=== PATIENT | female | born 2000 | race Caucasian/White ===

== ENCOUNTER 2021-01-02 09:03 | Emergency (ER) | payer BC, OTHER, SELFPAY ==
--- NOTE | 2021-01-02 09:12 | ED.FEMALEGU ---
HPI - Female Genitourinary General Chief complaint: Urogenital-Female Stated complaint: vaginal issues Time Seen by Provider: 01/02/21 09:06 Source: patient Mode of arrival: ambulatory Limitations: no limitations History of Present Illness HPI Narrative: Patient is a 20 year old female who presents reporting Diva cup is stuck. Patient reports inserting yesterday at approximately 2pm and has been unsuccessful at removing. Denies pelvic pain or other complaints. Patient denies medical significant medical history and denies all other complaints. MD elicited complaint: other (Foreign body (Diva cup)) Related Data Home Medications Medication Instructions Recorded Confirmed No Home Medications 01/02/21 01/02/21 Allergies Allergy/AdvReac Type Severity Reaction Status Date / Time No Known Allergies Allergy Verified 01/02/21 09:25 Review of Systems Review of Systems: Narrative: CONSTITUTIONAL: Denies fever, chills, or sweats. EYES: Denies visual changes, redness, or discharge. ENT: Denies rhinorrhea, congestion, sore throat, or otalgia. CARDIOVASCULAR: Denies chest pain, palpitations, or edema. RESPIRATORY: Denies cough or dyspnea. GASTROINTESTINAL: Denies abdominal pain, nausea, vomiting, or diarrhea. GENITOURINARY: Denies dysuria or hematuria. Reports unable to remove diva cup SKIN: Denies rash or itching. MUSCULOSKELETAL: Denies back pain, joint pain, or myalgia. NEUROLOGIC: Denies headache, numbness, dizziness, or weakness. PSYCHIATRIC: Denies anxiety or depression. [facility] Social History Social History (Updated 01/02/21 @ 09:14 by RAMIRO Smith) Smoking status: Never smoker Alcohol intake: never Substance use: never Comments Past Exam Narrative: Exam Narrative: GENERAL: Well-appearing, well-nourished, and in no acute distress. HEAD: Normocephalic, atraumatic. EYES: EOMI. No redness or drainage. Conjunctiva are normal. ENT: Mucous membranes pink and moist. CHEST: No respiratory distress. HEART: Regular rate and rhythm. GI: Soft, nontender without rebound, or guarding. No distention. : see procedure note EXTREMITIES: Normal range of motion. No edema. SKIN: Warm, dry, no rash. NEURO: No focal deficits. Alert and oriented x3. Gait steady. PSYCH: Normal affect. No signs of depression or anxiety. Tearful with pelvic exam. Course Vital Signs Vital signs: Vital Signs Temperature 36.8 C 01/02/21 09:29 Pulse Rate 90 01/02/21 09:29 Respiratory Rate 16 01/02/21 09:29 Blood Pressure 125/85 01/02/21 09:29 Pulse Oximetry 100 01/02/21 09:29 Temperature 36.8 C 01/02/21 09:29 Pulse Rate 90 01/02/21 09:29 Respiratory Rate 16 01/02/21 09:29 Blood Pressure 125/85 01/02/21 09:29 Pulse Oximetry 100 01/02/21 09:29 Procedures Other Procedure Procedure 1: Other Procedure: Pelvic exam performed, Diva cup removed with ring forceps. No abnormalities noted upon exam. MDM - Female Genitourinary MDM Narrative Medical decision making narrative: Patient is afebrile and nontoxic. Diva cup removed. Patient to follow up with OBGYN as needed. Patient agrees with plan of care, patient is stable for discharge to home with outpatient follow up as discussed. Differential Diagnosis Differential diagnosis: Likely urinary tract infection, bacterial vaginosis, cervicitis and other (foreign body) Critical Care Time Critical Care Time Critical Care Time: No Discharge Plan Discharge Clinical Impression: Acute foreign body of vagina Qualifiers: Encounter type: initial encounter Qualified Code(s): T19.2XXA - Foreign body in vulva and vagina, initial encounter Patient Disposition: Home, Self-Care Condition: Stable Instructions: Vaginal Foreign Body (ED) Additional Instructions: Please follow up with your OBGYN as discussed. Prescriptions: No Action No Home Medications RF: 0 Follow-up/Referrals: PHYSICIAN NOT ON STAFF,NONSTAFF [Primary
[2021-01-02 09:29] VITALS: BP 125/85; PULSE 90; RESP 16; TEMP 36.8; O2SAT 100
== END 2021-01-02 10:15 | disposition home or self-care (01) ==
PROVIDERS: Emergency Provider Nurse Practitioner
DX: T19.2XXA Foreign body in vulva and vagina, initial encounter (principal)
CPT/HCPCS: 99282